=== PATIENT | male | born 1970 | race Caucasian/White ===

== ENCOUNTER 2021-08-14 10:50 | Emergency (ER) | payer OTHER ==
[~2021-08-14] VITALS: Ht 188 cm; Wt 86.2 kg
[2021-08-14 10:51] VITALS: BP 130/85
--- NOTE | 2021-08-14 11:16 | NUR ---
51 Y/O MALE C/O CHEST PAIN 12/23 DESCRIBES TIGHNESS RADIATING TO LEFT ARM X 15 MINS. PT STATES THEY WERE SEEN BY URGENT CARE X2 DAYS AGO FOR RIB PAIN, NEGATIVE EKG AND XR. DENIES FEVER/CHILLS. DENIES N/V. DENIES [facility] NKA
--- NOTE | 2021-08-14 11:19 | NUR ---
20 GUAGE IV ESTABLISHED IN R AC. BLOOD WORK COLLECTED FROM IV
--- NOTE | 2021-08-14 11:20 | NUR ---
BLOOD WORK WALKED OVER TO LAB BY EMT
--- NOTE | 2021-08-14 11:27 | NUR ---
51 Y/O MALE C/O CHEST PAIN 12/23 DESCRIBES TIGHNESS RADIATING TO LEFT ARM X 15 MINS. PT STATES THEY WERE SEEN BY URGENT CARE X2 DAYS AGO FOR RIB PAIN, NEGATIVE EKG AND XR. DENIES FEVER/CHILLS. DENIES N/V. BREATH SOUNDS CLEAR BILATERALLY, S1/S2 HEARD, CAP REFILL <2 SECONDS. PT STATED PAIN HAS RESOLVED ITSELF AT THIS TIME. PT ALSO ADMITTED TO RECENT LOSS IN HIS LIFE DENIES [facility] NKA
[2021-08-14 11:40] LABS: BASOPHILS % (AUTO) 0.4 % (0.0-2.0); EOSINOPHILS # (AUTO) 0.1 K/uL (0-0.4); EOSINOPHILS % (AUTO) 1.7 % (0.0-4.0); HEMATOCRIT 44.8 % (36-52); HEMOGLOBIN 15.6 g/dL (12.0-18.0); LYMPHOCYTES # (AUTO) 1.4 K/uL (2.0-11.5); LYMPHOCYTES % (AUTO) 36.9 % (20.5-51.1); MEAN CORPUSCULAR HEMOGLOBIN 31 pg (27-31); MEAN CORPUSCULAR HGB CONC 35 g/dL (33-37); MEAN CORPUSCULAR VOLUME 88.3 fL (80-94); MONOCYTES # (AUTO) 0.2 K/uL (0.8-1.0); MONOCYTES % (AUTO) 5.4 % (1.7-9.3); NEUTROPHILS # (AUTO) 2.1 K/uL (1.8-7.7); NEUTROPHILS % (AUTO) 55.6 % (42.2-75.2); PLATELET COUNT (AUTO) 207 K/uL (140-450); RED BLOOD CELL COUNT(AUTO) 5.07 MIL/uL (4.20-6.10); RED CELL DISTRIBUTION WIDTH 13.4 % (11.6-13.7); WHITE BLOOD COUNT (AUTO) 3.9 K/uL (4.8-10.8)
--- NOTE | 2021-08-14 11:43 | NUR ---
BEDSIDE CURRENTLY WITH PATIENT
--- NOTE | 2021-08-14 11:45 | NUR ---
XRAY BEDSIDE WITH PATIENT
[2021-08-14] MEDS: ASPIRIN 81 MG TAB.CHEW PO ONE (12:15)
[2021-08-14 12:23] LABS: ANION GAP 13.2 (8-16); CARBON DIOXIDE 28.7 mmol/L (21-32); CREATININE 1.1 mg/dL (0.6-1.3); POTASSIUM 3.9 mmol/L (3.5-5.1)
[2021-08-14 12:26] LABS: TOTAL BILIRUBIN 1.2 mg/dL (0.0-1.0)
[2021-08-14 12:27] LABS: ALBUMIN 3.9 g/dL (3.4-5.0)
--- NOTE | 2021-08-14 12:48 | NUR ---
PT AMBULATED TO RESTROOM WITH A STEADY GAIT.
--- NOTE | 2021-08-14 13:03 | NUR ---
Patient appears to be resting comfortably in bed. Vital Signs within normal limits. Respirations even and unlabored.
--- NOTE | 2021-08-14 16:04 | NUR ---
PT AMBULATED TO AND FROM RESTROOM. GAIT STEADY
[2021-08-14 17:08] VITALS: BP 145/88
--- NOTE | 2021-08-14 17:08 | NUR ---
Patient discharged with v/s stable. Written and verbal after care instructions given and explained. Patient verbalized understanding. Ambulatory with steady gait. All questions addressed prior to discharge. Advised to follow up with PMD.
== END 2021-08-14 17:08 | disposition home or self-care (01) ==
LOC: MED 10:50
DX: R07.9 Chest pain, unspecified (principal); R42 Dizziness and giddiness
CPT/HCPCS: 36415; 71045; 80053; 84484; 85025; 93005; 99285; Q0092